=== PATIENT | male | born 1990 | race Caucasian/White ===

== ENCOUNTER 2018-12-26 07:34 | Outpatient (CLI) | payer BC ==
--- NOTE | 2018-12-26 08:41 | MRI ---
MRI thoracic spine noncontrast: 12/26/2018 HISTORY: 28-year-old male with thoracic disc herniation. Mid-upper back pain and chest pain July 2017. No trauma. COMPARISON: None FINDINGS: At the T6-7 level there is a very small left paracentral-lateral focal disc herniation which indents and rotates the left anterior aspect of the spinal cord. At T8-9 there is a very small left lateral disc herniation which does not contact the spinal cord, but probably does posteriorly and medially di splace the left ventral nerve root that is within the thecal sac. Conus medullaris terminates at L1. Vertebral body heights are maintained. Alignment is normal. Bone marrow signal is normal. Thoraci c spinal cord is normal in size and signal. No syringohydromyelia. No central stenosis or neural foraminal stenosis at any level. IMPRESSION: 1. Very small left paracentral focal disc herniation at T6-7 impinging on the spinal cord. 2. Very small left lateral focal disc herniation at T8-9 possibly impinging on the left ventral nerve root within the spinal canal close to the spinal cord.
== END 2018-12-26 07:35 | disposition home or self-care (01) ==
LOC: BICMRI 07:34
PROVIDERS: ATTEND Anesthesiology Pain Medicine
DX: M51.24 Other intervertebral disc displacement, thoracic region (principal)
CPT/HCPCS: 72146

== ENCOUNTER 2019-04-13 08:15 | Outpatient (CLI) | payer BC ==
--- NOTE | 2019-04-13 09:44 | MRI ---
MRI cervical spine noncontrast: HISTORY: 29-year-old male with other cervical disc degeneration. Cervicalgia. FINDINGS: Cervical spinal cord is normal in size and signal. Alignment is normal. No high-grade disc space narr owing at any level. No high-grade central spinal canal stenosis at any level. No cord impingement. Perivertebral spaces are unremarkable. Bone marrow signal is normal. Moderate bilateral neural forami nal stenosis at C4-5 and C5-6. No high-grade neural foraminal stenosis at any other level. IMPRESSION: 1. Moderate bilateral neural foraminal stenosis at C4-5 and C5-6. 2. Otherwise negative.
== END 2019-04-13 08:16 | disposition home or self-care (01) ==
LOC: BICMRI 08:15
PROVIDERS: ATTEND Anesthesiology Pain Medicine
DX: M50.321 Other cervical disc degeneration at C4-C5 level (principal); R51 Headache; M48.02 Spinal stenosis, cervical region
CPT/HCPCS: 72141

== ENCOUNTER 2019-12-21 08:29 | Outpatient (CLI) | payer BC ==
[2019-12-21] MEDS ORDERED: Iopamidol-370 76% 500 ML 1 ML ONE (10:02)
--- NOTE | 2019-12-21 12:15 | CT ---
CTA PULMONARY ANGIOGRAM WITH IV CONTRAST AND 3D POSTPROCESSING CT CHEST WITHOUT IV CONTRAST: HISTORY: Chest pain. Sara-Danlos syndrome. FINDINGS: There is good contrast opacification of the pulmonary arterial vascular without filling defect to sug gest pulmonary embolism. The thoracic aorta is well opacified without aneurysm or dissection. No pericardial or pleural effusions are seen. There are dependent changes in the posterior lung fiel ds. No pneumothoraces, focal areas of consolidation, lung nodules, or masses are seen. Upper abdominal tomograms demonstrate nonobstructing left renal calculi, the larger ones measuring 7 and 5 mm. The bony structures are unremarkable. IMPRESSION: 1. No CT evidence of pulmonary embolism or thoracic aortic aneurysm/dissection. 2. Nonobstructing left renal calculi. POS: CHANI
== END 2019-12-21 08:30 | disposition home or self-care (01) ==
LOC: BICCT 08:29
PROVIDERS: ATTEND Anesthesiology Pain Medicine
DX: R07.9 Chest pain, unspecified (principal); Q79.60 Ehlers-Danlos syndrome, unspecified; N20.0 Calculus of kidney
CPT/HCPCS: 71275; Q9967

== ENCOUNTER 2020-03-31 07:54 | Outpatient (CLI) | payer BC, OTHER ==
[2020-03-31 16:21] LABS: PTT 27.5 sec (22.9-36.1); Prothrombin Time 13.2 sec (12.0-14.7)
[2020-03-31 16:35] LABS: Hemoglobin 16.1 g/dL (14.0-18.0); Mean Corpuscular HGB CONC 33.3 g/dL (32.0-36.0); Mean Corpuscular Volume 90.1 fL (78.0-98.0); Mean Platelet Volume 8.4 fL (7.4-10.4); Platelet Count 236 thou/uL (130-400); Red Blood Cell (RBC) Count 5.37 mill/uL (4.70-6.10); White Blood Cell (WBC) Count 7.7 thou/uL (4.8-10.8)
[2020-03-31 16:36] LABS: Bacteria/HPF None Seen HPF (None Seen); Bilirubin Negative (Negative); Blood, Urine Negative (Negative); Clarity Clear (Clear); Glucose, Urine (Dipstick) Normal (Negative); Ketone, Urine Negative (Negative); Leukocyte Negative Leu/uL (Negative); Nitrite Negative (Negative); Protein, Urine (Dipstick) Negative (Neg-Trace); RBC/HPF 0-3 HPF (0-3); Specific Gravity, Urine 1.007 (1.002-1.036); Squamous Epithelial None Seen HPF (0-3); Urobilinogen Normal mg/dL (Less than 2); WBC/HPF 0-3 HPF (0-3); pH, Urine 7.5 (5.0-9.0)
[2020-03-31 16:42] LABS: Anion Gap 12 mmol/L (10-20); BUN (Urea Nitrogen) 11 mg/dL (8.9-20.6); Calc. Creatinine Clearance 0 mL/min (70-130); Calcium 9.7 mg/dL (7.8-10.44); Carbon Dioxide 26 mmol/L (22-29); Chloride 106 mmol/L (98-107); Estimated GFR-MDRD 89; Glucose 82 mg/dL (70-105); Potassium 4.4 mmol/L (3.5-5.1); Sodium 140 mmol/L (136-145)
[2020-04-01 16:22] LABS: SARS-CoV-2 MS2 Positive; SARS-CoV-2 N Gene Negative; SARS-CoV-2 S Gene Negative; SARS-CoV-2 by NAA Not Detected (NotDetected); SARS-CoV-2 orf1ab Negative
== END 2020-03-31 07:55 | disposition home or self-care (01) ==
LOC: LABBT 07:54
PROVIDERS: ATTEND Urology
DX: Z01.812 Encounter for preprocedural laboratory examination (principal); Z20.828 Contact with and (suspected) exposure to other viral communicable diseases
CPT/HCPCS: 80048; 81001; 85027; 85610; 85730; 87086; 87635; U0003

== ENCOUNTER 2020-04-03 06:39 | Observation (INO) | payer BC ==
[2020-03-31 16:13] VITALS: BMI 23.7
[2020-04-03] MEDS ORDERED: Levofloxacin 500 mg/D5W 100 ml Premix Bag ONE (07:51)
[2020-04-03] MEDS ORDERED: Fentanyl 100 MCG/2 ML VIAL ONE ×4 (08:06→11:58)
[2020-04-03] MEDS ORDERED: Midazolam HCl 2 mg/2 ml Vial ONE (08:18)
[2020-04-03] MEDS ORDERED: Famotidine 20 MG TAB ONE (08:18)
[2020-04-03] MEDS ORDERED: Famotidine/PF 20 mg/2ml Vial ONE (08:19)
[2020-04-03] MEDS ORDERED: Iothalamate Meglumine 60% 50 ML VIAL FS ONE (08:30)
[2020-04-03] MEDS ORDERED: B & O ONE (08:30)
[2020-04-03] MEDS ORDERED: Oxybutynin 5 MG TAB PO PRN (09:47)
[2020-04-03] MEDS ORDERED: diphenhydrAMINE 50 MG/ML VIAL IVP PRN (09:47)
[2020-04-03] MEDS ORDERED: Acetaminophen 500 MG TAB PO PRN (09:47)
[2020-04-03] MEDS ORDERED: Mag-Al 1200 mg/1200 mg/30 ML UDCUP PO PRN (09:47)
[2020-04-03] MEDS ORDERED: Phenazopyridine HCl 97.5 MG TABLET PO PRN (09:47)
[2020-04-03] MEDS ORDERED: Hyoscyamine Sulfate SL 0.125 mg Tablet SL PRN (09:47)
[2020-04-03] MEDS ORDERED: Ondansetron PF 4 MG/2 ML Vial IVP PRN (09:47)
[2020-04-03] MEDS ORDERED: Morphine 2 MG/ML VIAL SLOW IVP PRN (09:47)
[2020-04-03] MEDS ORDERED: Ondansetron PF 4 MG/2 ML Vial ONE (09:52)
[2020-04-03] MEDS ORDERED: diphenhydrAMINE 50 MG/ML VIAL ONE (09:52)
[2020-04-03] MEDS ORDERED: Dexamethasone 20 MG/5 ML VIAL ONE (09:52)
[2020-04-03] MEDS ORDERED: PROPOFOL 200 MG/20 ML VIAL ONE (09:52)
[2020-04-03] MEDS ORDERED: traMADol HCl 50 MG TAB PO PRN (09:56)
[2020-04-03] MEDS ORDERED: Lorazepam 0.5 MG TAB PO PRN (09:57)
[2020-04-03] MEDS ORDERED: Meperidine HCl/PF 25 MG/ML VIAL ONE (10:05)
--- NOTE | 2020-04-03 11:37 | OP ---
DATE OF PROCEDURE: 04/03/2020 SERVICE: Urology. PREOPERATIVE DIAGNOSIS: Left renal stones. POSTOPERATIVE DIAGNOSIS: Left renal stones. PROCEDURE PERFORMED: Left ureteroscopy, laser lithotripsy, basket extraction of stones, placement of 6 x 28 double-J stent with no string. INDICATION FOR PROCEDURE: Mr. Fernández is a 30-year-old white male who initially had presented to me after CT angiogram of the chest for chest pain had demonstrated renal stones. The majority the stones were concentrated on the left with only very small stones on the right. He elected for left ureteroscopy to remove the stones prophylactically as opposed to passing them in the future. Risks and benefits of the surgery were discussed, and he has agreed to proceed forward. DESCRIPTION OF PROCEDURE: After identification of armband and verification of consent, the patient was brought back to the operating room. He underwent general anesthesia with an LMA. He was then placed in the dorsal lithotomy position, prepped and draped in usual sterile fashion. After appropriate time-out, a lubricated 22-Algerian rigid cystoscope was introduced per urethra into the bladder. Attention was turned to left ureteral orifice which was cannulated with a 0.035 Sensor wire up to the level of renal pelvis. The cystoscope was then removed, and a dual-lumen catheter was advanced over the Sensor wire to the level of the mid ureter. An Amplatz Super Stiff wire was then placed through the second lumen of the dual-lumen catheter into the renal pelvis. The dual-lumen was then removed, and a Bard long 12/14-Algerian ureteral access sheath was advanced over the Super Stiff wire up to the level of the proximal ureter. The inner cannula and Super Stiff wire were then removed leaving the outer sheath and Sensor wire in place as a safety wire. A flexible digital ureteroscope was then passed through the ureteral access sheath into the proximal ureter. The proximal ureter was quite narrow and required a mild dilation in order to get into the renal pelvis which was done gently with the scope over a wire. Once within the renal pelvis, pyeloscopy was performed, and there were multiple stones encountered consistent with the previous the patient's outpatient CT report. Using a 200-micron ball-tip laser fiber, the stones were fragmented to smaller pieces and then the fragments removed with a 1.9-Algerian ZeroTip Nitinol basket. Upon completion, only fragments remaining that were submillimeter or 1 mm in size. I did not feel like the gravity successfully as attempts to pick them up were unsuccessful as they were going through the basket tines. I felt that these should pass without difficulty as they were extremely small. Remainder of pyeloscopy did not demonstrate any additional larger stones. Pull-back ureteroscopy was employed and did reveal another dilation around the mid ureter. As such, I will have to leave a stent for 2 weeks in this patient to allow for healing of the dilation from the ureteral access sheath and the proximal dilation done with the ureteroscope. The sheath and ureteroscope were then removed entirely, and the cystoscope was backloaded over the Sensor wire back into the bladder. A 6 x 28 double-J stent was advanced over the Sensor wire up to the level of renal pelvis. The wire was removed leaving a good curl in the bladder and a partial curl in the kidney. The bladder was then emptied and the cystoscope removed B and O suppositories were placed in the patient's rectum. He was taken out of position, awakened, and taken to PACU for recovery in stable condition. COMPLICATIONS: None. ESTIMATED BLOOD LOSS: Minimal. RETAINED TUBES AND DRAINS: 6 x 28 double-J stent on the left. SPECIMENS: Stone for stone analysis. DISPOSITION: The patient will be discharged to home and follow up with me in approximately 2 weeks for cysto and stent removal. Job ID: [id number]
[2020-04-03 13:58] VITALS: BP 147/85; TEMP 97.8
[2020-04-03] MEDS ORDERED: Docusate 100 MG CAP PO SCH (21:00)
[2020-04-03] MEDS ORDERED: Vortioxetine Hydrobromide [Trintellix] 20 MG Tablet PO SCH (21:00)
== END 2020-04-03 15:16 | disposition home or self-care (01) ==
LOC: SDC 06:39 → SURG B 09:58
PROVIDERS: ADMIT Urology; ATTEND Urology
PROC: 0TC48ZZ Extirpation of Matter from Left Kidney Pelvis, Via Natural or Artificial Opening Endoscopic (ICD-10-PCS; principal; 2020-04-03)
PROC: 0T778DZ Dilation of Left Ureter with Intraluminal Device, Via Natural or Artificial Opening Endoscopic (ICD-10-PCS; 2020-04-03)
DX: N20.0 Calculus of kidney (principal); Q79.60 Ehlers-Danlos syndrome, unspecified; M41.50 Other secondary scoliosis, site unspecified; G43.909 Migraine, unspecified, not intractable, without status migrainosus; K21.9 Gastro-esophageal reflux disease without esophagitis; F32.9 Major depressive disorder, single episode, unspecified; F41.9 Anxiety disorder, unspecified; Z79.899 Other long term (current) drug therapy; Z88.8 Allergy status to other drugs, medicaments and biological substances
CPT/HCPCS: 74420; 82365; 88300; 96375; G0378; J1100; J1200; J1956; J2175; J2250; J2405; J2704; J3010; S0028

== ENCOUNTER 2020-06-11 14:48 | Outpatient (CLI) | payer BC ==
--- NOTE | 2020-06-11 15:33 | ULT ---
Bilateral renal ultrasound CLINICAL INDICATION: Nephrolithiasis. COMPARISON: CT abdomen on 02/07/2020. FINDINGS: Right kidney: There is an echogenic focus seen in the midportion right kidney measuring 0.7 cm with s uggestion of posterior shadowing. This likely represents a nonobstructing right renal calculus. No additional echogenic foci are seen. There is no hydronephrosis or renal mass seen in the right kidney .The right kidney measures 11.7 cm x 4.5 cm. Left kidney: Tiny echogenic focus is seen in the junction of the midportion superior pole left kidney . No definitive posterior shadowing is present. However, renal calculi were seen on prior CT exam, and this could potentially represent a nonshadowing renal calculus measuring 0.7 cm. There is no left hydronephrosis or renal mass.The left kidney measures 12 cm x 5.1 cm. Urinary bladder: Within normal limits for degree of distention. The urinary bladder volume is 943 mL. There is increased echogenicity involving the visualized right hepatic lobe suggesting fatty infiltra tion. IMPRESSION: 1. Single subcentimeter echogenic foci are seen in each kidney which may represent tiny nonobstructin g renal calculi. Multiple nonobstructing left renal calculi were seen on CT exam on 02/07/2020. 2. No evidence of hydronephrosis. 3. Hepatic steatosis involving the visualized right hepatic lobe.
== END 2020-06-11 14:49 | disposition home or self-care (01) ==
LOC: BICULT 14:48
PROVIDERS: ATTEND Urology
DX: N20.0 Calculus of kidney (principal); K76.0 Fatty (change of) liver, not elsewhere classified; R93.421 Abnormal radiologic findings on diagnostic imaging of right kidney; R93.422 Abnormal radiologic findings on diagnostic imaging of left kidney
CPT/HCPCS: 76770

== ENCOUNTER 2021-04-12 20:21 | Emergency (ER) | payer BC ==
[2021-04-12 21:10] LABS: #Basophils 0.1 thou/uL (0.0-0.2); #Eosinphils 0.2 thou/uL (0.0-0.7); #Lymphocytes 2.3 thou/uL (1.20-3.40); #Monocytes 0.4 thou/uL (0.11-0.59); #Neutrophils 3.5 thou/uL (1.40-6.50); %Basophils 1.1 % (0.0-1.0); %Eosinophils 2.7 % (0.0-10.0); %Lymphocytes 35.9 % (21.0-51.0); %Monocytes 6.5 % (0.0-10.0); %Neutrophils 53.8 % (42.0-75.0); Hemoglobin 16.2 g/dL (14.0-18.0); Mean Corpuscular HGB CONC 34.4 g/dL (32.0-36.0); Mean Corpuscular Hemoglobin 30.4 pg (27.0-31.0); Mean Corpuscular Volume 88.4 fL (78.0-98.0); Mean Platelet Volume 6.9 fL (7.4-10.4); Platelet Count 334 thou/uL (130-400); RBC Distribution Width 11.9 % (11.5-14.5); Red Blood Cell (RBC) Count 5.31 mill/uL (4.70-6.10); White Blood Cell (WBC) Count 6.5 thou/uL (4.8-10.8)
[2021-04-12 21:38] LABS: ALT (SGPT) 39 U/L (8-55); AST (SGOT) 18 U/L (5-34); Albumin 4.6 g/dL (3.5-5.0); Alkaline Phosphatase 45 U/L (40-110); Anion Gap 15 mmol/L (10-20); BUN (Urea Nitrogen) 11 mg/dL (8.9-20.6); Calc. Creatinine Clearance 0 mL/min (70-130); Calcium 9.7 mg/dL (7.8-10.44); Carbon Dioxide 22 mmol/L (22-29); Chloride 108 mmol/L (98-107); Globulin 2.5 g/dL (2.4-3.5); Glucose 127 mg/dL (70-105); Potassium 3.7 mmol/L (3.5-5.1); Protein, Total 7.1 g/dL (6.0-8.3); Sodium 141 mmol/L (136-145)
[2021-04-12] MEDS ORDERED: Ondansetron PF 4 MG/2 ML Vial ONE (22:49)
[2021-04-12] MEDS ORDERED: Morphine 4 MG/ML VIAL ONE (22:49)
[2021-04-12] MEDS ORDERED: Ketorolac Tromethamine 30 MG/ML VIAL ONE (22:49)
[2021-04-13] MEDS ORDERED: Morphine 4 MG/ML VIAL ONE (00:35)
[2021-04-13 01:16] LABS: Bacteria/HPF None Seen HPF (None Seen); Bilirubin Negative (Negative); Blood, Urine 2+ (Negative); Clarity Clear (Clear); Glucose, Urine (Dipstick) Normal (Negative); Ketone, Urine Trace mg/dL (Negative); Leukocyte Negative Leu/uL (Negative); Mucous/LPF Rare LPF (<2+); Nitrite Negative (Negative); Protein, Urine (Dipstick) Negative (Neg-Trace); Specific Gravity, Urine 1.009 (1.002-1.036); Squamous Epithelial None Seen HPF (0-3); Urobilinogen Normal mg/dL (Less than 2); WBC/HPF 0-3 HPF (0-3)
== END 2021-04-13 02:58 | disposition home or self-care (01) ==
LOC: ERS 20:21
DX: N13.2 Hydronephrosis with renal and ureteral calculous obstruction (principal); Z79.899 Other long term (current) drug therapy
CPT/HCPCS: 36415; 74176; 80053; 81003; 81015; 83690; 85025; 93005; 96374; 96375; 96376; J1885; J2270; J2405

== ENCOUNTER 2021-05-11 15:46 | Outpatient (CLI) | payer BC | END 2021-05-11 15:47 | disposition home or self-care (01) | LOC: BICCT 15:46 | PROVIDERS: ATTEND Urology | DX: N20.2 Calculus of kidney with calculus of ureter (principal) | CPT/HCPCS: 74176 ==

== ENCOUNTER 2021-07-07 10:27 | Outpatient (CLI) | payer BC ==
[2021-07-07 11:31] LABS: Bilirubin Neg (Negative); Blood, Urine Negative (Negative); Clarity Clear (Clear); Glucose, Urine (Dipstick) Normal (Negative); Ketone, Urine Negative (Negative); Leukocyte Negative (Negative); Nitrite Negative (Negative); Protein, Urine (Dipstick) Negative (Neg-Trace); Specific Gravity, Urine 1.005 (1.002-1.036); Urobilinogen Normal mg/dL (Less than 2)
[2021-07-07 11:38] LABS: Mean Corpuscular HGB CONC 34.1 g/dL (32.0-36.0); Mean Corpuscular Hemoglobin 29.4 pg (27.0-33.0); Mean Corpuscular Volume 86.2 fl (81.2-95.1); Platelet Count 284 10x3/uL (150-450); RBC Distribution Width 12.8 % (11.5-14.5); Red Blood Cell (RBC) Count 5.44 10x6/uL (4.32-5.72)
[2021-07-07 11:41] LABS: Bacteria/HPF None Seen HPF (None Seen); RBC/HPF 0-3 HPF (0-3); Squamous Epithelial None Seen HPF (0-3); WBC/HPF 0-3 HPF (0-3)
[2021-07-07 11:48] LABS: PTT 29.3 sec (22.0-33.0); Prothrombin Time 10.9 sec (9.5-12.1)
[2021-07-07 11:56] LABS: Anion Gap 11 mmol/L (10-20); BUN (Urea Nitrogen) 9 mg/dL (8.9-20.6); Calc. Creatinine Clearance 0 mL/min (70-130); Calcium 9.5 mg/dL (7.8-10.44); Carbon Dioxide 28 mmol/L (22-29); Chloride 104 mmol/L (98-107); Glucose 73 mg/dL (70-105); Potassium 4.4 mmol/L (3.5-5.1); Sodium 139 mmol/L (136-145)
[2021-07-07 22:53] LABS: SARS-CoV-2 PCR by NAA Not Detected (NotDetected)
== END 2021-07-07 10:28 | disposition home or self-care (01) ==
LOC: LABBT 10:27
PROVIDERS: ATTEND Urology
DX: Z01.812 Encounter for preprocedural laboratory examination (principal); Z20.822 Contact with and (suspected) exposure to COVID-19
CPT/HCPCS: 80048; 81001; 85027; 85610; 85730; 87086; U0003; U0005

== ENCOUNTER 2021-07-10 06:18 | Day surgery (SDC) | payer BC ==
[2021-07-06 13:41] VITALS: BMI 24.4
[2021-07-10] MEDS ORDERED: Fentanyl 100 MCG/2 ML VIAL ONE (07:22)
[2021-07-10] MEDS ORDERED: Iothalamate Meglumine 60% 50 ML VIAL FS ONE (07:28)
[2021-07-10] MEDS ORDERED: B & O ONE (07:28)
[2021-07-10] MEDS ORDERED: Levofloxacin 500 mg/D5W 100 ml Premix Bag ONE (07:33)
[2021-07-10] MEDS ORDERED: Ketorolac Tromethamine 30 MG/ML VIAL ONE (07:47)
[2021-07-10] MEDS ORDERED: Rocuronium Bromide 10 MG/ML (10ML VIAL) ONE (07:47)
[2021-07-10] MEDS ORDERED: PROPOFOL 200 MG/20 ML VIAL ONE (07:47)
[2021-07-10] MEDS ORDERED: Ondansetron PF 4 MG/2 ML Vial ONE (07:47)
[2021-07-10] MEDS ORDERED: Glycopyrrolate 0.2 MG/ML 5 ML SYRINGE ONE (07:47)
[2021-07-10] MEDS ORDERED: Lidocaine 1% PF 5 ML VIAL ONE (07:47)
[2021-07-10] MEDS ORDERED: Dexamethasone 20 MG/5 ML VIAL ONE (07:47)
[2021-07-10] MEDS ORDERED: Albuterol Sulfate HFA (OR ONLY) ONE (08:10)
[2021-07-10] MEDS ORDERED: Meperidine HCl/PF 25 MG/ML VIAL ONE (09:26)
== END 2021-07-10 12:32 | disposition home or self-care (01) ==
LOC: SDC 06:18
PROVIDERS: ATTEND Urology
PROC: 0TC38ZZ Extirpation of Matter from Right Kidney Pelvis, Via Natural or Artificial Opening Endoscopic (ICD-10-PCS; principal; 2021-07-10)
PROC: 0TC48ZZ Extirpation of Matter from Left Kidney Pelvis, Via Natural or Artificial Opening Endoscopic (ICD-10-PCS; principal; 2021-07-10)
PROC: 0T788DZ Dilation of Bilateral Ureters with Intraluminal Device, Via Natural or Artificial Opening Endoscopic (ICD-10-PCS; principal; 2021-07-10)
DX: N20.0 Calculus of kidney (principal); N25.89 Other disorders resulting from impaired renal tubular function; K21.9 Gastro-esophageal reflux disease without esophagitis; E78.5 Hyperlipidemia, unspecified; Z79.899 Other long term (current) drug therapy
CPT/HCPCS: 76000; 82365; 88300; C1713; C2617; J1956; J2175; J3010; Q9961-U8

== ENCOUNTER 2021-10-02 10:26 | Emergency (ER) | payer BC ==
[2021-10-02 10:47] LABS: #Basophils 0.1 thou/uL (0.0-0.2); #Eosinphils 0.1 thou/uL (0.0-0.7); #Monocytes 0.6 thou/uL (0.11-0.59); #Neutrophils 4.9 thou/uL (1.40-6.50); %Basophils 0.8 % (0.0-1.0); %Eosinophils 1.6 % (0.0-10.0); %Lymphocytes 25.8 % (21.0-51.0); %Monocytes 7.6 % (0.0-10.0); %Neutrophils 64.2 % (42.0-75.0); Hemoglobin 15.7 g/dL (14.0-18.0); Mean Corpuscular HGB CONC 33.9 g/dL (32.0-36.0); Mean Corpuscular Hemoglobin 30.7 pg (27.0-31.0); Mean Corpuscular Volume 90.8 fL (78.0-98.0); Mean Platelet Volume 6.2 fL (7.4-10.4); Platelet Count 301 thou/uL (130-400); RBC Distribution Width 12.3 % (11.5-14.5); Red Blood Cell (RBC) Count 5.11 mill/uL (4.70-6.10); White Blood Cell (WBC) Count 7.7 thou/uL (4.8-10.8)
[2021-10-02 11:09] LABS: ALT (SGPT) 25 U/L (8-55); AST (SGOT) 21 U/L (5-34); Albumin 4.5 g/dL (3.5-5.0); Alkaline Phosphatase 39 U/L (40-110); Anion Gap 13 mmol/L (10-20); BUN (Urea Nitrogen) 9 mg/dL (8.9-20.6); Bilirubin, Total 1.1 mg/dL (0.2-1.2); Calc. Creatinine Clearance 0 mL/min (70-130); Calcium 9.1 mg/dL (7.8-10.44); Carbon Dioxide 24 mmol/L (22-29); Chloride 105 mmol/L (98-107); Globulin 2.5 g/dL (2.4-3.5); Glucose 118 mg/dL (70-105); Potassium 3.8 mmol/L (3.5-5.1); Sodium 138 mmol/L (136-145)
[2021-10-02] MEDS ORDERED: Ketorolac Tromethamine 30 MG/ML VIAL ONE (11:26)
[2021-10-02] MEDS ORDERED: Ondansetron PF 4 MG/2 ML Vial ONE (11:26)
[2021-10-02 13:34] LABS: Bilirubin Negative (Negative); Blood, Urine Negative (Negative); Clarity Turbid (Clear); Glucose, Urine (Dipstick) Normal (Negative); Ketone, Urine Negative (Negative); Leukocyte Negative Leu/uL (Negative); Nitrite Negative (Negative); Protein, Urine (Dipstick) Negative (Neg-Trace); Specific Gravity, Urine 1.008 (1.002-1.036); Urobilinogen Normal mg/dL (Less than 2); pH, Urine 7.5 (5.0-9.0)
== END 2021-10-02 14:33 | disposition home or self-care (01) ==
LOC: ERS 10:26
DX: N20.1 Calculus of ureter (principal); K21.9 Gastro-esophageal reflux disease without esophagitis; Z79.899 Other long term (current) drug therapy
CPT/HCPCS: 36415; 74176; 80053; 81003; 83690; 85025; 96374; 96375; J1885; J2405

== ENCOUNTER 2022-03-03 13:14 | Emergency (ER) | payer BC ==
[2022-03-03] MEDS ORDERED: Ketorolac Tromethamine 30 MG/ML VIAL ONE (15:01)
== END 2022-03-03 15:36 | disposition home or self-care (01) ==
LOC: ERS 13:14
DX: M54.6 Pain in thoracic spine (principal); K21.9 Gastro-esophageal reflux disease without esophagitis
CPT/HCPCS: 96372; 99283; J1885

== ENCOUNTER 2022-03-28 20:05 | Emergency (ER) | payer BC ==
[2022-03-28 20:39] LABS: #Basophils 0.1 thou/uL (0.0-0.2); #Eosinphils 0.3 thou/uL (0.0-0.7); #Lymphocytes 2.4 thou/uL (1.20-3.40); #Monocytes 0.6 thou/uL (0.11-0.59); #Neutrophils 2.8 thou/uL (1.40-6.50); %Basophils 1.5 % (0.0-1.0); %Eosinophils 4.4 % (0.0-10.0); %Lymphocytes 39.1 % (21.0-51.0); %Monocytes 9.2 % (0.0-10.0); %Neutrophils 45.9 % (42.0-75.0); Hemoglobin 15.1 g/dL (14.0-18.0); Mean Corpuscular HGB CONC 33.8 g/dL (32.0-36.0); Mean Corpuscular Volume 91.5 fL (78.0-98.0); Platelet Count 257 thou/uL (130-400); RBC Distribution Width 12.1 % (11.5-14.5); Red Blood Cell (RBC) Count 4.87 mill/uL (4.70-6.10); White Blood Cell (WBC) Count 6.1 thou/uL (4.8-10.8)
[2022-03-28 20:59] LABS: ALT (SGPT) 36 U/L (8-55); AST (SGOT) 20 U/L (5-34); Albumin 4.5 g/dL (3.5-5.0); Alkaline Phosphatase 39 U/L (40-110); Anion Gap 12 mmol/L (10-20); BUN (Urea Nitrogen) 9 mg/dL (8.9-20.6); Bilirubin, Total 0.9 mg/dL (0.2-1.2); Calc. Creatinine Clearance 0 mL/min (70-130); Calcium 9.3 mg/dL (7.8-10.44); Carbon Dioxide 24 mmol/L (22-29); Chloride 106 mmol/L (98-107); Estimated GFR 107; Globulin 2.3 g/dL (2.4-3.5); Glucose 98 mg/dL (70-105); Potassium 3.5 mmol/L (3.5-5.1); Protein, Total 6.8 g/dL (6.0-8.3); Sodium 138 mmol/L (136-145)
[2022-03-28 22:57] LABS: Bilirubin Negative (Negative); Blood, Urine 3+ (Negative); Clarity Clear (Clear); Glucose, Urine (Dipstick) Normal (Negative); Ketone, Urine Negative (Negative); Leukocyte Negative Leu/uL (Negative); Nitrite Negative (Negative); Protein, Urine (Dipstick) Negative (Neg-Trace); RBC/HPF 21-50 HPF (0-3); Specific Gravity, Urine 1.007 (1.002-1.036); Squamous Epithelial None Seen HPF (0-3); Urobilinogen Normal mg/dL (Less than 2); WBC/HPF 0-3 HPF (0-3); pH, Urine 6.5 (5.0-9.0)
[2022-03-28 23:04] LABS: Bacteria/HPF Rare-Few HPF (None Seen)
== END 2022-03-29 00:10 | disposition home or self-care (01) ==
LOC: ERS 20:05
DX: N13.2 Hydronephrosis with renal and ureteral calculous obstruction (principal)
CPT/HCPCS: 36415; 74176; 80053; 81003; 81015; 85025

== ENCOUNTER 2022-04-13 10:15 | Outpatient (CLI) | payer BC ==
[2022-04-13 11:05] LABS: Hemoglobin 16.7 g/dL (13.5-17.5); Mean Corpuscular HGB CONC 35.2 g/dL (32.0-36.0); Mean Corpuscular Hemoglobin 30.4 pg (27.0-33.0); Mean Corpuscular Volume 86.3 fl (81.2-95.1); Mean Platelet Volume 9.2 fl (7.4-10.4); Platelet Count 332 10x3/uL (150-450); RBC Distribution Width 12.2 % (11.5-14.5); Red Blood Cell (RBC) Count 5.49 10x6/uL (4.32-5.72); White Blood Cell (WBC) Count 6.2 10x3/uL (3.5-10.5)
[2022-04-13 11:13] LABS: Bilirubin Neg (Negative); Blood, Urine 150 (Negative); Clarity Clear (Clear); Glucose, Urine (Dipstick) Normal (Negative); Ketone, Urine Negative (Negative); Leukocyte Negative (Negative); Nitrite Negative (Negative); PTT 29.9 sec (22.0-33.0); Protein, Urine (Dipstick) Negative (Neg-Trace); Prothrombin Time 10.9 sec (9.5-12.1); Urobilinogen Normal mg/dL (Less than 2)
[2022-04-13 11:17] LABS: Anion Gap 15 mmol/L (10-20); BUN (Urea Nitrogen) 10 mg/dL (8.9-20.6); Calc. Creatinine Clearance 0 mL/min (70-130); Calcium 9.8 mg/dL (7.8-10.44); Carbon Dioxide 23 mmol/L (22-29); Chloride 108 mmol/L (98-107); Estimated GFR 114; Glucose 82 mg/dL (70-105); Potassium 4.4 mmol/L (3.5-5.1); Sodium 142 mmol/L (136-145)
[2022-04-13 11:22] LABS: Bacteria/HPF None Seen HPF (None Seen); Squamous Epithelial None Seen HPF (0-3); WBC/HPF 0-3 HPF (0-3)
== END 2022-04-13 10:16 | disposition home or self-care (01) ==
LOC: LABBT 10:15
PROVIDERS: ATTEND Urology
DX: Z01.812 Encounter for preprocedural laboratory examination (principal); N20.0 Calculus of kidney; N25.89 Other disorders resulting from impaired renal tubular function; Q79.60 Ehlers-Danlos syndrome, unspecified
CPT/HCPCS: 80048; 81001; 85027; 85610; 85730; 87086

== ENCOUNTER 2022-07-05 16:22 | Emergency (ER) | payer BC ==
[~2022-07-05 16:22] MED LIST: Iopamidol-370 76% 500 ML 1 ML ONE
[2022-07-05 17:18] LABS: #Eosinphils 0.2 thou/uL (0.0-0.7); #Lymphocytes 1.7 thou/uL (1.20-3.40); #Monocytes 0.4 thou/uL (0.11-0.59); %Basophils 0.7 % (0.0-1.0); %Eosinophils 3.5 % (0.0-10.0); %Lymphocytes 31.9 % (21.0-51.0); %Monocytes 8.2 % (0.0-10.0); %Neutrophils 55.7 % (42.0-75.0); Hemoglobin 16.5 g/dL (14.0-18.0); Mean Corpuscular Hemoglobin 31.6 pg (27.0-31.0); Mean Corpuscular Volume 90.4 fl (78.0-98.0); Mean Platelet Volume 6.9 fL (7.4-10.4); Platelet Count 293 10x3/uL (130-400); RBC Distribution Width 11.7 % (11.5-14.5); Red Blood Cell (RBC) Count 5.23 mill/uL (4.70-6.10); White Blood Cell (WBC) Count 5.3 10x3/uL (4.8-10.8)
[2022-07-05 17:40] LABS: ALT (SGPT) 59 U/L (8-55); AST (SGOT) 25 U/L (5-34); Albumin 4.7 g/dL (3.5-5.0); Alkaline Phosphatase 39 U/L (40-110); Anion Gap 11 mmol/L (10-20); BUN (Urea Nitrogen) 10 mg/dL (8.9-20.6); Bilirubin, Total 0.7 mg/dL (0.2-1.2); Calc. Creatinine Clearance 0 mL/min (70-130); Calcium 9.7 mg/dL (7.8-10.44); Carbon Dioxide 26 mmol/L (22-29); Chloride 107 mmol/L (98-107); Estimated GFR 111; Globulin 2.4 g/dL (2.4-3.5); Glucose 90 mg/dL (70-105); Lipase 26 U/L (8-78); Potassium 4.4 mmol/L (3.5-5.1); Protein, Total 7.1 g/dL (6.0-8.3); Sodium 140 mmol/L (136-145)
[2022-07-05] MEDS ORDERED: Acetaminophen 500 MG TAB ONE ×2 (19:15)
[2022-07-05 19:35] LABS: Bilirubin Negative (Negative); Blood, Urine Negative (Negative); Clarity Clear (Clear); Glucose, Urine (Dipstick) Normal (Negative); Ketone, Urine Negative (Negative); Leukocyte Negative Leu/uL (Negative); Nitrite Negative (Negative); Protein, Urine (Dipstick) Negative (Neg-Trace); Specific Gravity, Urine 1.008 (1.002-1.036); Urobilinogen Normal mg/dL (Less than 2); pH, Urine 6.5 (5.0-9.0)
== END 2022-07-05 23:00 | disposition home or self-care (01) ==
LOC: ERS 16:22
DX: N20.0 Calculus of kidney (principal); K76.0 Fatty (change of) liver, not elsewhere classified; K21.9 Gastro-esophageal reflux disease without esophagitis
CPT/HCPCS: 36415; 74177; 80053; 81003; 83690; 85025; 87086; Q9967

== ENCOUNTER 2022-10-14 15:40 | Outpatient (CLI) | payer BC | END 2022-10-14 15:41 | disposition home or self-care (01) | LOC: ULT 15:40 | PROVIDERS: ATTEND Urology | DX: N20.0 Calculus of kidney (principal); N28.1 Cyst of kidney, acquired | CPT/HCPCS: 76770 ==

== ENCOUNTER 2023-05-03 08:06 | Outpatient (CLI) | payer BC | END 2023-05-03 08:07 | disposition home or self-care (01) | LOC: BICMRI 08:06 | PROVIDERS: ATTEND Nurse Practitioner Family | DX: M50.121 Cervical disc disorder at C4-C5 level with radiculopathy (principal) | CPT/HCPCS: 72141 ==

== ENCOUNTER 2024-03-05 10:01 | Emergency (ER) | payer BC ==
[2024-03-05] MEDS ORDERED: Ketorolac Tromethamine 30 MG (1 mL) VIAL ONE (10:36)
[2024-03-05 11:14] LABS: #Basophils 0.07 10x3/uL (0.0-0.2); %Basophils 1.4 % (0.0-1.0); %Eosinophils 2.7 % (0.0-10.0); %Lymphocytes 33.2 % (21.0-51.0); %Monocytes 7.7 % (0.0-10.0); %Neutrophils 54.4 % (42.0-75.0); Hematocrit 47.4 % (42.0-52.0); Hemoglobin 16.8 g/dL (14.0-18.0); Mean Corpuscular HGB CONC 35.4 g/dL (32.0-36.0); Mean Corpuscular Hemoglobin 30.2 pg (27.0-31.0); Mean Corpuscular Volume 85.1 fL (78.0-98.0); Mean Platelet Volume 9.3 fL (7.4-10.4); Platelet Count 304 10x3/uL (130-400); RBC Distribution Width 12.5 % (11.5-14.5); Red Blood Cell (RBC) Count 5.57 mill/uL (4.70-6.10)
[2024-03-05 11:45] LABS: ALT (SGPT) 58 U/L (8-55); AST (SGOT) 26 U/L (5-34); Albumin 4.5 g/dL (3.5-5.0); Alkaline Phosphatase 42 U/L (40-110); Anion Gap 15 mmol/L (10-20); BUN (Urea Nitrogen) 8 mg/dL (8.9-20.6); Bilirubin, Total 0.9 mg/dL (0.2-1.2); Calc. Creatinine Clearance 0 mL/min (70-130); Calcium 9.6 mg/dL (7.8-10.44); Carbon Dioxide 21 mmol/L (22-29); Chloride 109 mmol/L (98-107); Estimated GFR 116; Globulin 2.8 g/dL (2.4-3.5); Glucose 97 mg/dL (70-105); Potassium 3.9 mmol/L (3.5-5.1); Protein, Total 7.3 g/dL (6.0-8.3); Sodium 141 mmol/L (136-145)
[2024-03-05 12:30] LABS: Bacteria/HPF 1+ HPF (None Seen); Bilirubin Negative (Negative); Blood, Urine 3+ (Negative); CAUTI Indications for Culture Pelvic or flank pain; Clarity Clear (Clear); Glucose, Urine (Dipstick) Normal (Negative); Ketone, Urine Negative (Negative); Leukocyte Negative Leu/uL (Negative); Nitrite Negative (Negative); Protein, Urine (Dipstick) Negative (Neg-Trace); Specific Gravity, Urine 1.004 (1.002-1.036); Squamous Epithelial None Seen HPF (0-3); Urobilinogen Normal mg/dL (Less than 2); WBC/HPF 0-3 HPF (0-3); pH, Urine 6.5 (5.0-9.0)
[2024-03-05 12:31] LABS: Urine Culture Reflex No No
== END 2024-03-05 13:18 | disposition home or self-care (01) ==
LOC: ERS 10:01
DX: N20.2 Calculus of kidney with calculus of ureter (principal)
CPT/HCPCS: 36415; 74176; 80053; 81001; 85025; 96374; J1885

== ENCOUNTER 2024-03-15 09:34 | Day surgery (SDC) | payer BC ==
[2024-03-09 14:11] VITALS: BMI 27.8
[2024-03-15] MEDS ORDERED: LevoFLOXacin D5W 500 mg (100 mL) BAG ONE (11:36)
[2024-03-15] MEDS ORDERED: Midazolam HCl 2 mg/2 ml Vial ONE ×2 (11:46→12:51)
[2024-03-15] MEDS ORDERED: Lidocaine 2% PF 5 ML VIAL ONE (12:51)
[2024-03-15] MEDS ORDERED: PROPOFOL 20 ML ONE (12:51)
[2024-03-15] MEDS ORDERED: fentaNYL PF 100 MCG/2 ML SYRINGE ONE (12:51)
[2024-03-15] MEDS ORDERED: Ondansetron PF 4 MG/2 ML Vial ONE (12:53)
[2024-03-15] MEDS ORDERED: Dexamethasone 4 mg/ml Vial ONE (12:53)
[2024-03-15] MEDS ORDERED: HYDROmorphone 2 MG/ML VIAL ONE (13:20)
[2024-03-15] MEDS ORDERED: Rocuronium Bromide 10 MG/ML (10ML VIAL) ONE (14:14)
[2024-03-15] MEDS ORDERED: SUGAMMADEX SODIUM 200 MG/2 ML VIAL ONE (14:15)
[2024-03-15] MEDS ORDERED: Oxybutynin 5 MG TAB ONE (15:22)
[2024-03-15] MEDS ORDERED: Phenazopyridine HCl 100 MG TAB ONE (15:22)
[2024-03-15] MEDS ORDERED: Ondansetron ODT 4 MG TAB ONE (18:19)
== END 2024-03-15 18:30 | disposition home or self-care (01) ==
LOC: SDC 09:34
PROVIDERS: ATTEND Urology
PROC: 0TC78ZZ Extirpation of Matter from Left Ureter, Via Natural or Artificial Opening Endoscopic (ICD-10-PCS; principal; 2024-03-15)
PROC: 0T778DZ Dilation of Left Ureter with Intraluminal Device, Via Natural or Artificial Opening Endoscopic (ICD-10-PCS; principal; 2024-03-15)
DX: N20.2 Calculus of kidney with calculus of ureter (principal)
CPT/HCPCS: 82365; 88300; J1100; J1170; J1956; J2001; J2250; J2405; J2704; Q0162